=== PATIENT | male | born 1965 | race Caucasian/White ===

== ENCOUNTER 2016-10-10 17:01 | Emergency (ER) | payer MEDICAID ==
[~2016-10-10] VITALS: Ht 185.4 cm; Wt 102.6 kg
[2016-10-10 18:42] LABS: BLOOD UREA NITROGEN 13 mg/dL (7-18)
[2016-10-10] MEDS ORDERED: LEVO25TA4 PO (19:19)
[2016-10-10] MEDS ORDERED: SIMV5TAB5 PO (19:19)
[2016-10-10] MEDS ORDERED: ONDANSETRON ODT 4 MG ONE (19:39)
[2016-10-10] MEDS ORDERED: ONDANSETRON ODT 4 MG PO ONE (20:00)
[2016-10-10] MEDS ORDERED: KETOROLAC 30 MG/1 ML IM ONE (20:00)
[2016-10-10] MEDS ORDERED: KETOROLAC 30 MG/1 ML ONE (20:29)
[2016-10-10 22:24] VITALS: BP 120/76
== END 2016-10-10 22:50 ==
LOC: ED 21:00
DX: R10.32 Left lower quadrant pain (principal); R11.2 Nausea with vomiting, unspecified; E78.00 Pure hypercholesterolemia, unspecified; E03.9 Hypothyroidism, unspecified; Z88.0 Allergy status to penicillin
CPT/HCPCS: 36415; 74000; 74176; 76770; 80048; 81001; 82040; 85025; 96372; 99285; J1885; Q0162

== ENCOUNTER 2016-11-03 06:40 | Day surgery (SDC) | payer MEDICAID ==
[~2016-11-03] VITALS: Ht 185.4 cm; Wt 97.9 kg
[~2016-11-03 06:40] MED LIST: LEVO25TA4 PO; SIMV5TAB5 PO
[2016-11-03] MEDS ORDERED: SODIUM CHLORIDE 0.9% 1,000 ML IV SCH (07:10)
[2016-11-03 07:11] VITALS: BP 105/71
[2016-11-03 07:42] LABS: ASPARTATE AMINO TRANSFERASE 15 U/L (15-37); BLOOD UREA NITROGEN 17 mg/dL (7-18)
[2016-11-03] MEDS ORDERED: OMNIPAQUE 350 MG/ML, 100ML BOTTLE ONE (08:25)
[2016-11-03] MEDS ORDERED: FENTANYL PF 100 MCG/2ML ONE ×2 (08:34→08:35)
[2016-11-03] MEDS ORDERED: MIDAZOLAM 1 MG/ML, 5ML ONE (08:34)
[2016-11-03] MEDS ORDERED: NALOXONE 1 MG/ML, 2ML ONE (08:35)
[2016-11-03] MEDS ORDERED: FLUMAZENIL 0.1 MG/1 ML, 5ML ONE (08:35)
== END 2016-11-03 11:00 ==
LOC: OUT 06:40
PROVIDERS: ATTEND Urology
DX: N13.30 Unspecified hydronephrosis (principal); I10 Essential (primary) hypertension; E03.9 Hypothyroidism, unspecified; J45.909 Unspecified asthma, uncomplicated; Z98.890 Other specified postprocedural states; Z72.89 Other problems related to lifestyle; Z88.0 Allergy status to penicillin
CPT/HCPCS: 20225; 36415; 72191; 77012; 80053; 88172; 88173; 99156; J2250; J3010; J7030; Q9967; 99157; J2310

== ENCOUNTER → 2016-12-06 | Outpatient (CLI) | payer MEDICAID ==
[~2016-12-06] MED LIST changes: +GADOBUTROL 10 MMOL/10 ML PFS ONE
== END | disposition home or self-care (01) ==
LOC: CFH 14:13
PROVIDERS: ATTEND Urology
DX: N13.30 Unspecified hydronephrosis (principal); R31.0 Gross hematuria
CPT/HCPCS: 72197; A9585

== ENCOUNTER 2017-06-16 00:35 | Emergency (ER) | payer MEDICAID ==
[~2017-06-16] VITALS: Ht 185.4 cm; Wt 87.0 kg
[~2017-06-16 00:35] MED LIST changes: -GADOBUTROL 10 MMOL/10 ML PFS ONE
[2017-06-16] MEDS ORDERED: OMEP-110 PO (00:50)
[2017-06-16 01:20] LABS: MICROSCOPIC AUTO
[2017-06-16] MEDS ORDERED: ONDANSETRON ODT 8 MG ONE (01:25)
[2017-06-16] MEDS ORDERED: MORPHINE SULFATE 4 MG/ML, 1ML ONE (01:25)
[2017-06-16] MEDS ORDERED: MORPHINE SULFATE 4 MG/ML, 1ML IVPush PRN (01:30)
[2017-06-16] MEDS ORDERED: SODIUM CHLORIDE FLUSH 10ML SYR IVF ONE (01:30)
[2017-06-16] MEDS ORDERED: ONDANSETRON ODT 4 MG PO ONE (01:30)
[2017-06-16 01:32] LABS: CULTURE INDICATED? NO
[2017-06-16 01:53] LABS: BASOPHILS # (AUTO) 0.06 x10^3/uL (0-0.1); BASOPHILS % (AUTO) 1 % (0-1); EOSINOPHILS % (AUTO) 3 % (1-7); LYMPHOCYTES # (AUTO) 2.21 x10^3/uL (1-3.4); LYMPHOCYTES % (AUTO) 19 % (22-44); MD NO; MEAN CORPUSCULAR HEMOGLOBIN 30.5 pg (27.5-34.5); MEAN CORPUSCULAR HGB CONC 33.8 g/dL (33.2-36.2); MEAN CORPUSCULAR VOLUME 90.3 fL (81-97); MONOCYTES # (AUTO) 0.96 x10^3/uL (0.2-0.8); MONOCYTES % (AUTO) 8 % (2-9); NEUTROPHILS # (AUTO) 8.11 x10^3/uL (1.8-6.8); NEUTROPHILS % (AUTO) 69 % (42-75); PLATELET COUNT 286 x10^3/uL (130-400); RED BLOOD COUNT 4.87 x10^6/uL (4.38-5.82); RED CELL DISTRIBUTION WIDTH 13.6 % (9.4-14.8)
[2017-06-16 01:58] LABS: ALANINE AMINOTRANSFERASE 22 U/L (12-78); ALBUMIN 3.4 g/dL (3.4-5.0); ANION GAP 7 mmol/L (5-15); CALCIUM 8.6 mg/dL (8.5-10.1); CHLORIDE 109 mmol/L (98-107); CREATININE 1.16 mg/dL (0.7-1.3)
[2017-06-16 02:00] LABS: ALKALINE PHOSPHATASE 93 U/L (45-117); BILIRUBIN,TOTAL 0.2 mg/dL (0.2-1.0); TOTAL PROTEIN 7.5 g/dL (6.4-8.2)
[2017-06-16 04:02] VITALS: BP 117/85
== END 2017-06-16 04:10 | disposition home or self-care (01) ==
LOC: ED 04:04
DX: N10 Acute pyelonephritis (principal); N20.2 Calculus of kidney with calculus of ureter; E03.9 Hypothyroidism, unspecified; E78.00 Pure hypercholesterolemia, unspecified; K21.9 Gastro-esophageal reflux disease without esophagitis; Z88.6 Allergy status to analgesic agent; Z88.0 Allergy status to penicillin; Z79.899 Other long term (current) drug therapy
CPT/HCPCS: 36415; 74176; 80053; 81001; 83690; 85025; 96374; 99285; Q0162

== ENCOUNTER → 2017-09-10 | Outpatient (CLI) | payer MEDICAID ==
[~2017-09-10] MED LIST changes: +OMEP-110 PO; +OMNIPAQUE 350 MG/ML, 150 ML BOTTLE ONE
== END | disposition home or self-care (01) ==
LOC: CFH 12:46
PROVIDERS: ATTEND Urology
DX: N13.30 Unspecified hydronephrosis (principal)
CPT/HCPCS: 74178; Q9967